=== PATIENT | female | born 1935 | race Two or more races ===

== ENCOUNTER 2016-06-19 17:38 | Emergency (ER) | payer BC, MEDICAID ==
[~2016-06-19] VITALS: Ht 160 cm; Wt 59.0 kg
[2016-06-19 21:24] VITALS: BP 122/81
== END 2016-06-19 21:27 | disposition home or self-care (01) ==
LOC: ER 17:39
DX: M79.672 Pain in left foot (principal); M25.572 Pain in left ankle and joints of left foot; M85.872 Other specified disorders of bone density and structure, left ankle and foot; M76.62 Achilles tendinitis, left leg; M20.12 Hallux valgus (acquired), left foot
CPT/HCPCS: 73610; 73630; 99284; Z7610